=== PATIENT | female | born 1965 | race Caucasian/White ===

== ENCOUNTER 2021-04-15 14:13 | Emergency (ER) | payer MEDICAID, SELFPAY ==
[~2021-04-15] VITALS: Ht 175.3 cm; Wt 62.6 kg
[2021-04-15 14:29] VITALS: BP_SYST 129
--- NOTE | 2021-04-15 14:34 | NUR ---
Patient to ER bed 04 to gown for evaluation. Side rails up.
--- NOTE | 2021-04-15 14:40 | NUR ---
Blood draws done and sent to laboratory. V/s stable. Will medicate for nausea and vomiting.
--- NOTE | 2021-04-15 14:45 | NUR ---
MD at bedside doing assessment.
[2021-04-15] MEDS ORDERED: KETOROLAC TROMETHAMINE 15 MG VIAL IVP ONE (15:00)
[2021-04-15] MEDS ORDERED: ACETAMINOPHEN 500 MG TABLET PO ONE (15:00)
[2021-04-15] MEDS ORDERED: METOCLOPRAMIDE HCL 10 MG/2 ML VIAL IVP ONE (15:00)
[2021-04-15] MEDS ORDERED: DIPHENHYDRAMINE INJ 50 MG/ML VIAL IVP ONE (15:00)
[2021-04-15] MEDS ORDERED: NACL 0.9% 1,000 ML IV ONE (15:00)
--- NOTE | 2021-04-15 15:50 | NUR ---
Medicated for pain. V/S stable BP 132/68, Hr 69, O2 sat 98% room air, resp 18.
[2021-04-15 16:18] LABS: BASOPHILS # (AUTO) 0.1 K/uL (0.0-0.2); EOSINOPHILS # (AUTO) 0.1 K/uL (0.0-0.4); EOSINOPHILS % (AUTO) 2.5 % (0.0-4.0); HEMATOCRIT 38.3 % (36-48); HEMOGLOBIN 12.6 g/dL (12.0-16.0); LYMPHOCYTES # (AUTO) 1.8 K/uL (1.0-5.5); LYMPHOCYTES % (AUTO) 31.8 % (20.5-51.5); MEAN CORPUSCULAR HEMOGLOBIN 30 pg (27-31); MEAN CORPUSCULAR HGB CONC 33 % (32-36); MEAN CORPUSCULAR VOLUME 91 fL (79.0-98.0); MONOCYTES # (AUTO) 0.6 K/uL (0.0-1.0); MONOCYTES % (AUTO) 10.3 % (1.7-9.3); NEUTROPHILS # (AUTO) 3.1 K/uL (1.8-7.7); NEUTROPHILS % (AUTO) 54.4 % (40.0-70.0); PLATELET COUNT (AUTO) 180 K/uL (130-430); RED BLOOD CELL COUNT(AUTO) 4.22 MIL/uL (4.2-6.2); RED CELL DISTRIBUTION WIDTH 14.5 % (9.0-15.0); WHITE BLOOD COUNT (AUTO) 5.7 K/uL (4.8-10.8)
[2021-04-15 16:53] LABS: ANION GAP 6 (5-15); CALCIUM 8.2 mg/dL (8.4-11.0); CHLORIDE 104 mmol/L (98-107); CREATININE 0.56 mg/dL (0.55-1.30); GLUCOSE 94 mg/dL (70-99); POTASSIUM 4.6 mmol/L (3.5-5.1); SODIUM SERUM 142 mmol/L (136-145); UREA NITROGEN, BLOOD 15 mg/dL (8-21)
[2021-04-15 16:59] LABS: ACETAMINOPHEN 8 ug/mL (1-30); ALANINE AMINOTRANSFERASE 30 U/L (12-78); ALBUMIN 3.4 g/dL (3.4-4.8); ASPARTATE AMINOTRANSFERASE 17 U/L (10-37); TOTAL BILIRUBIN 0.2 mg/dL (0.0-1.0)
[2021-04-15 17:04] LABS: ALCOHOL, BLOOD < 3 mg/dL (<10); GFR AFRICAN AMERICAN 144 mL/min (>90)
[2021-04-15] MEDS ORDERED: ACET325T PO (17:25)
[2021-04-15 17:29] LABS: BARBITURATE, URINE NEGATIVE (NEG <=200); BENZODIAZEPINE, URINE NEGATIVE (NEG <=150); CANNABINOID, URINE NEGATIVE (NEG <=50); COCAINE, URINE NEGATIVE (NEG <=150); METHAMPHETAMINES SCREEN,URINE NEGATIVE (NEG <=500); OPIATE, URINE NEGATIVE (NEG <=100); PHENCYCLIDINE SCREEN,URINE NEGATIVE (NEG <=25); UR TRICYCLIC ANTIDEPRESSANTS NEGATIVE (NEG <=300); URINE AMPHETAMINE NEGATIVE (NEG <=500); URINE METHADONE NEGATIVE (NEG <=200); URINE OXYCODONE SCREEN NEGATIVE (NEG <=100); URINE PROPOXYPHENE SCREEN NEGATIVE (NEG <=300)
[2021-04-15 18:25] LABS: BILIRUBIN,URINE NEGATIVE (NEGATIVE); CLARITY/URINE CLEAR (CLEAR); COLOR,URINE YELLOW (YELLOW); GLUCOSE,URINE NEGATIVE (NEGATIVE); KETONES,URINE TRACE (NEGATIVE); LEUKOCYTE ESTERASE ,URINE TRACE (NEGATIVE); NITRITE, URINE NEGATIVE (NEGATIVE); PROTEIN URINE NEGATIVE (NEGATIVE); UROBILINOGEN,URINE 0.2 (0.2-1.0)
[2021-04-15 18:33] LABS: BLOOD, URINE TRACE (NEGATIVE)
[2021-04-15 18:41] LABS: BACTERIA,URINE FEW /HPF (None Seen); RBC,URINE 0-3 /HPF (0-3); WBC,URINE 0-3 /HPF (0-3)
[2021-04-15] MEDS ORDERED: CEPH-548 PO (18:44)
[2021-04-15] MEDS ORDERED: cephALEXin 500 MG CAPSULE PO ONE (18:45)
[2021-04-15] MEDS ORDERED: cephALEXin 500 MG CAPSULE ONE (19:01)
[2021-04-15 19:16] VITALS: BP_SYST 122
--- NOTE | 2021-04-15 19:18 | NUR ---
DISCHARGE INSTRUCTION PROVIDED. VERBALIZED UNDERSTANDING. WALKED TO HER RIDE AWAITING AT THE PARKING AREA.
[2021-04-19 01:06] LABS: NEISSERIA GONORRHOEAE NAA Negative (Negative)
[2021-04-19 13:01] LABS: CHLAMYDIA TRACHOMATIS NAA Positive (Negative)
--- NOTE | 2021-04-19 13:10 | NUR ---
TEST RESULTS FOR +CHLAMYDIA PROVIDED BY LAB. THERE IS NO DOCUMENTED PHONE NUMBER FOR PT, UNABLE TO CALL TO INFORM OF RESULTS AT THIS TIME.
== END 2021-04-15 19:16 | disposition home or self-care (01) ==
LOC: SED 14:13
DX: N39.0 Urinary tract infection, site not specified (principal); R51.9 Headache, unspecified; F11.10 Opioid abuse, uncomplicated; F22 Delusional disorders; F31.9 Bipolar disorder, unspecified; M32.9 Systemic lupus erythematosus, unspecified; Z98.890 Other specified postprocedural states; Z88.1 Allergy status to other antibiotic agents; Z88.8 Allergy status to other drugs, medicaments and biological substances; Z20.822 Contact with and (suspected) exposure to COVID-19
CPT/HCPCS: 36415; 80053; 80307; 81000; 83605; 85025; 87040; 87426; 87491; 87591; 87804 ×2; 93005; 96361; 96374; 96375; 99284; G0480; J1200; J1885; J2765; J7030; G0481; G0482

== ENCOUNTER 2021-08-12 13:48 | Emergency (ER) | payer MEDICAID ==
[~2021-08-12] VITALS: Ht 175.3 cm; Wt 63.5 kg
[~2021-08-12 13:48] MED LIST: ACET325T PO; CEPH-548 PO
[2021-08-12 14:06] VITALS: BP_SYST 128
--- NOTE | 2021-08-12 14:10 | NUR ---
Patient to ER bed 5 for evaluation. Side rails up. Report given to Caryl MUELLER.
--- NOTE | 2021-08-12 14:12 | NUR ---
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
--- NOTE | 2021-08-12 14:22 | NUR ---
Dr Webb evaluating patient at bedside
[2021-08-12] MEDS ORDERED: DIPH25CA83 PO ×2 (14:59→15:00)
[2021-08-12] MEDS ORDERED: ONDA-8 TL (15:00)
[2021-08-12] MEDS ORDERED: CEPH250C PO (15:00)
--- NOTE | 2021-08-12 15:00 | NUR ---
Patient given written and verbal discharge instructions and verbalizes understanding. ER MD discussed with patient the results and treatment provided. Patient in stable condition. ID arm band removed. Rx of keflex,Benadryl,zofran given. Patient educated on pain management and to follow up with PMD. Pain Scale 0. Opportunity for questions provided and answered. Medication side effect fact sheet provided.
== END 2021-08-12 15:00 | disposition home or self-care (01) ==
LOC: SED 13:48
DX: S00.81XA Abrasion of other part of head, initial encounter (principal); Z88.6 Allergy status to analgesic agent; Z79.899 Other long term (current) drug therapy; X58.XXXA Exposure to other specified factors, initial encounter; Y93.89 Activity, other specified; Y92.89 Other specified places as the place of occurrence of the external cause; Y99.8 Other external cause status
CPT/HCPCS: 81025; 99283